=== PATIENT | male | born 1985 | race American Indian/Alaskan Native ===

== ENCOUNTER 2021-09-27 19:22 | Emergency (ER) | payer SELFPAY ==
[2021-09-27 19:31] VITALS: BP 140/92
[2021-09-27] MEDS ORDERED: IBUPROFEN 600 MG TAB PO ONE (21:53)
[2021-09-27] MEDS ORDERED: LIDOCAINE VISCOUS 2% 15 ML ORAL LIQD PO ONE (21:53)
[2021-09-27] MEDS ORDERED: predniSONE 50 MG TAB PO ONE (21:53)
--- NOTE | 2021-09-27 22:26 | XRay Report ---
XR chest 1V ap INDICATION / CLINICAL INFORMATION: COUGH COMPARISON: None available. FINDINGS: SUPPORT DEVICES: None. HEART / MEDIASTINUM: No significant abnormality. LUNGS / PLEURA: Lungs are clear. Costophrenic sulci are sharp. No pneumothorax. ADDITIONAL FINDINGS: No significant additional findings. IMPRESSION: 1. No acute findings. Signer Name: Matt Carrillo MD Signed: 09/27/2021 10:21 PM Workstation Name: [id number]
--- NOTE | 2021-09-27 23:15 | Emergency Department Report ---
- General Chief Complaint: Sore Throat Stated Complaint: SORE THROAT AND INTERMITENT PALPITAIONS. Source: EMS Mode of arrival: Stretcher Limitations: No Limitations - History of Present Illness Initial Comments: Patient is a 36-year-old -[place] male with no past medical history presented to the ED with complaint of acute onset persistent nasal and sinus congestion, persistent frontal sinus pressure and headache, sore throat, persistent dry cough with pleuritic chest wall pain, diffuse body aches and pains and chills for the last 1 week, worse in the last 3 days. Patient states that no one else at home has had similar symptoms. Patient states that he has been taking [id number] medications with no relief. Patient denies dizziness, syncope, fever, chills, nausea, vomiting, diarrhea, dysuria, urinary frequency and urgency, abdominal pain, chest pain or shortness of breath. MD Complaint: cough, sore throat, rhinorrhea, nasal congestion, sinus pain -: Sudden, week(s) (1) Severity: severe Severity scale (0 -10): 7 Quality: sharp, aching Consistency: constant Improves With: nothing Worsens With: nothing Associated Symptoms: denies other symptoms, chills, myalgias, headache, rhinorrhea, nasal congestion, sore throat, cough. denies: fever, diaphoresis, chest pain, shortness of breath, abdominal pain, nausea, vomiting, diarrhea, dysuria, rash, confusion, epistaxis, hoarseness, ear pain Treatments Prior to Arrival: "cold medicine" - Related Data Previous Rx's Medication Instructions Recorded Last Taken Type Azithromycin [Zithromax Z-MARLINE] 250 mg PO DAILY #6 tab 09/27/21 Unknown Rx Benzonatate [Tessalon Perles] 100 mg PO Q8HR #30 cap 09/27/21 Unknown Rx Cetirizine HCl [Zyrtec 10mg tab] 10 mg PO DAILY #30 tab 09/27/21 Unknown Rx Ibuprofen [Motrin] 600 mg PO Q8H PRN #30 tablet 09/27/21 Unknown Rx Prednisone [predniSONE 10 mg 10 mg PO .TAPER #21 09/27/21 Unknown Rx (6-Day Pack, 21 Tabs)] Allergies Allergy/AdvReac Type Severity Reaction Status Date / Time No Known Allergies Allergy Verified 09/27/21 19:29 ED Review of Systems ROS: Stated complaint: SORE THROAT AND INTERMITENT PALPITAIONS. Other details as noted in HPI Constitutional: chills, malaise, weakness. denies: fever Eyes: denies: eye pain, eye discharge, vision change ENT: throat pain, congestion, other (Frontal sinus pressure). denies: ear pain Respiratory: cough (Dry cough). denies: shortness of breath, wheezing Cardiovascular: denies: chest pain, palpitations Endocrine: no symptoms reported Gastrointestinal: denies: abdominal pain, nausea, vomiting, diarrhea Genitourinary: denies: urgency, dysuria Musculoskeletal: arthralgia, myalgia. denies: back pain, joint swelling Skin: denies: rash, lesions Neurological: headache (Frontal headache). denies: weakness, paresthesias Psychiatric: denies: anxiety, depression Hematological/Lymphatic: denies: easy bleeding, easy bruising ED Past Medical Hx - Past Medical History Hx Asthma: Yes - Surgical History Past Surgical History?: Yes - Medications Home Medications: Home Medications Medication Instructions Recorded Confirmed Last Taken Type Azithromycin [Zithromax Z-MARLINE] 250 mg PO DAILY #6 tab 09/27/21 Unknown Rx Benzonatate [Tessalon Perles] 100 mg PO Q8HR #30 cap 09/27/21 Unknown Rx Cetirizine HCl [Zyrtec 10mg tab] 10 mg PO DAILY #30 tab 09/27/21 Unknown Rx Ibuprofen [Motrin] 600 mg PO Q8H PRN #30 tablet 09/27/21 Unknown Rx Prednisone [predniSONE 10 mg 10 mg PO .TAPER #21 09/27/21 Unknown Rx (6-Day Pack, 21 Tabs)] ED Physical Exam - General Limitations: No Limitations General appearance: alert, in no apparent distress - Head Head exam: Present: atraumatic, normocephalic, normal inspection - Eye Eye exam: Present: normal appearance, PERRL, EOMI Pupils: Present: normal accommodation - ENT ENT exam: Present: mucous membranes moist, TM's normal bilaterally, normal external ear exam, other (Grossly congested nasal passages; mild erythematous oropharynx; palpable frontal sinus tenderness) - Neck Neck exam: Present: normal inspection, full ROM. Absent: tenderness - Respiratory Respiratory exam: Present: normal lung sounds bilaterally. Absent: respiratory distress, wheezes, rales, stridor, chest wall tenderness, accessory muscle use, decreased breath sounds, prolonged expiratory - Cardiovascular Cardiovascular Exam: Present: regular rate, normal rhythm, normal heart sounds. Absent: systolic murmur, diastolic murmur, rubs, gallop - GI/Abdominal GI/Abdominal exam: Present: soft, normal bowel sounds. Absent: tenderness, guarding, rebound, hyperactive bowel sounds, hypoactive bowel sounds, organomegaly, mass - Extremities Exam Extremities exam: Present: normal inspection, full ROM, normal capillary refill - Back Exam Back exam: Present: normal inspection, full ROM. Absent: tenderness, CVA tenderness (R), CVA tenderness (L), muscle spasm, paraspinal tenderness, vertebral tenderness - Neurological Exam Neurological exam: Present: alert, oriented X3, CN II-XII intact, normal gait, reflexes normal - Psychiatric Psychiatric exam: Present: normal affect, normal mood - Skin Skin exam: Present: warm, dry, intact, normal color. Absent: rash ED Course Vital Signs 09/27/21 19:30 Temperature 97.6 F Pulse Rate 92 H Respiratory 16 Rate Blood Pressure 140/92 [Left] O2 Sat by Pulse 100 Oximetry ED Medical Decision Making - Radiology Data Radiology results: report reviewed, image reviewed [facility] [address] [place] [address] XRay Report Signed Patient: JAVIER HERNANDEZ MR#: [id number] : 1985 Acct:[id number] Age/Sex: 36 / M ADM Date: 09/27/21 Loc: ED Attending Dr: Ordering Physician: DARRIN MAURICIO Date of Service: 09/27/21 Procedure(s): XR chest 1V ap Accession Number(s): [id number] cc: DARRIN MAURICIO Fluoro Time In Minutes: XR chest 1V ap INDICATION / CLINICAL INFORMATION: COUGH COMPARISON: None available. FINDINGS: SUPPORT DEVICES: None. HEART / MEDIASTINUM: No significant abnormality. LUNGS / PLEURA: Lungs are clear. Costophrenic sulci are sharp. No pneumothorax. ADDITIONAL FINDINGS: No significant additional findings. IMPRESSION: 1. No acute findings. Signer Name: Matt Carrillo MD Signed: 09/27/2021 10:21 PM Workstation Name: [id number] Transcribed By: Dictated By: Matt Carrillo MD Electronically Authenticated By: Matt Carrillo MD Signed Date/Time: 09/27/212220 DD/ 20 TD/TT: Print Cancel - Medical Decision Making This is a 36-year-old -[place] male with no past medical history presented to the ED with complaint of acute onset persistent nasal and sinus congestion, persistent frontal sinus pressure and headache, sore throat, persistent dry cough with pleuritic chest wall pain, diffuse body aches and pains and chills for the last 1 week, worse in the last 3 days. Patient states that no one else at home has had similar symptoms. Patient states that he has been taking [id number] medications with no relief. In the ED, patient is alert and oriented x3 and is not in any distress. Patient was treated in the ED for pain. Chest x-ray showed no acute cardiopulmonary abnormalities or pneumonitis. Patient will discharge home on medications and advised to follow- up with his primary care physician in 7 to 10 days for reevaluation or return to the ED immediately if symptoms get worse. - Differential Diagnosis URI; pharyngitis; bronchitis; pneumonia; sinusitis; Critical care attestation.: If time is entered above; I have spent that time in minutes in the direct care of this critically ill patient, excluding procedure time. ED Disposition Clinical Impression: Acute asthmatic bronchitis, Acute upper respiratory infection Acute pharyngitis Qualifiers: Pharyngitis/tonsillitis etiology: other specified organisms Qualified Code(s): J02.8 - Acute pharyngitis due to other specified organisms Disposition: 01 HOME / SELF CARE / HOMELESS Is pt being admited?: No Does the pt Need Aspirin: No Condition: Stable Instructions: Acute Bronchitis (ED), Upper Respiratory Infection, Adult, [id number], Cough, Adult, [id number], Pharyngitis, [id number], Acute Bronchitis, Adult, [id number] Additional Instructions: Chest x-ray showed no acute cardiopulmonary abnormalities or pneumonitis. Your symptoms are likely due to upper respiratory infection causing persistent bronchitis given the fact that you have an underlying asthma condition. Therefore take medication with food, drink plenty of fluids and follow-up with your primary care physician in 7 to 10 days for reevaluation. Return to the ED immediately if symptoms get worse. Prescriptions: Ibuprofen [Motrin] 600 mg PO Q8H PRN #30 tablet PRN Reason: Pain Prednisone [predniSONE 10 mg (6-Day Pack, 21 Tabs)] 10 mg PO .TAPER #21 Benzonatate [Tessalon Perles] 100 mg PO Q8HR #30 cap Azithromycin [Zithromax Z-MARLINE] 250 mg PO DAILY #6 tab Cetirizine HCl [Zyrtec 10mg tab] 10 mg PO DAILY #30 tab Referrals: [facility] [Provider Group] - 3-5 Days Time of Disposition: 23:17 Print Language: CANADIAN
== END 2021-09-28 00:04 | disposition home or self-care (01) ==
LOC: ED 19:22
DX: J45.901 Unspecified asthma with (acute) exacerbation (principal); J06.9 Acute upper respiratory infection, unspecified; J02.8 Acute pharyngitis due to other specified organisms
CPT/HCPCS: 71045; 99283; J7512